=== PATIENT | male | born 1980 | race African-American/Black ===

== ENCOUNTER 2018-08-17 19:30 | Inpatient (IN) | payer OTHER ==
[~2018-08-17] VITALS: Ht 180.3 cm; Wt 99.2 kg
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
[2018-08-17 19:38] VITALS: BP 106/76
[2018-08-17 19:48] LABS: ABSOLUTE NEUTROPHILS 3.2 thou/uL (1.4-8.2); BASOPHILS 0.9 % (0.0-2.0); EOSINOPHILS 1.7 % (0.0-3.0); HEMATOCRIT 39.4 % (42.0-52.0); HEMOGLOBIN 13.3 gm/dL (14.0-18.0); LYMPHOCYTES 14.4 % (24.0-44.0); MCH 27.9 pg (26.0-34.0); MCHC 33.6 g/dL (28.0-37.0); MCV 82.9 fL (80.0-100.0); MONOCYTES 10.7 % (1.0-8.0); PLATELET COUNT 185 thou/uL (150-400); POLYS 72.3 % (36.0-66.0); RBC 4.75 mil/uL (4.50-6.00); RDW 16.5 % (10.5-14.5); WBC 4.4 thou/uL (4.0-11.0)
[2018-08-17 19:58] LABS: ANION GAP 5 mmol/L (7-16); BUN 15 mg/dL (7-18); CALCIUM 8.5 mg/dL (8.5-10.1); CHLORIDE 108 mmol/L (98-107); CO2 35 mmol/L (21-32); CREATININE 0.8 mg/dL (0.7-1.3); GLUCOSE 126 mg/dL (74-106); POTASSIUM 3.6 mmol/L (3.5-5.1); SODIUM 148 mmol/L (136-145)
[2018-08-17 20:08] LABS: ALBUMIN 2.8 g/dL (3.4-5.0); MAGNESIUM 1.7 mg/dL (1.8-2.4); SGOT 13 U/L (15-37); SGPT 23 U/L (30-65); TOTAL BILIRUBIN 0.1 mg/dL (<0.1-1.0); TOTAL PROTEIN 6.6 g/dL (6.4-8.2); TROPONIN-I <0.06 ng/mL (<0.06)
--- NOTE | 2018-08-17 20:26 | NUR ---
titrated to 8 from 6
--- NOTE | 2018-08-17 20:38 | NUR ---
CARDIZEM BUMPED TO 10 FROM 8
[2018-08-17 20:55] LABS: AMP/METHAMP Negative (Negative); BARBITURATES Negative (Negative); BENZODIAZEPINES Negative (Negative); COCAINE Negative (Negative); METHADONE Negative (Negative); OPIATES Negative (Negative); PCP Negative (Negative)
[2018-08-17 23:59] VITALS: BP 138/92
[2018-08-18 00:35] VITALS: BP 138/92
[2018-08-18] MEDS ORDERED: HALOPERIDOL 5 MG5 MG PO (01:00)
[2018-08-18] MEDS ORDERED: BENZTROPINE MES1 MG (01:03)
[2018-08-18] MEDS ORDERED: HYDROXYZINE HCL50 MG PO (01:06)
[2018-08-18 04:12] VITALS: BP 119/75
[2018-08-18 05:08] LABS: CALCIUM 8.2 mg/dL (8.5-10.1); CREATININE 0.7 mg/dL (0.7-1.3); MAGNESIUM 2.2 mg/dL (1.8-2.4); POTASSIUM 4.3 mmol/L (3.5-5.1)
--- NOTE | 2018-08-18 05:35 | NUR ---
PT WAS AN ER ADMIT AT ABOUT 0030 WITH AFIB RVR. PT IS ALERT AND ORIENTED BUT SLOW TO RESPOND. NO SIGN OF DISTRESS NOTED. PT CONVERTED TO NSR IN THE ER PRIOR TO COMING TO THE FLOOR. ADMISSION ASSESSMENT AND ADMISSION COMPLETED. CARDIZEM WAS STOPPED WITH HEART RATE IN NSR. NO SIGNS OF DISTRESS NOTED. NO FAMILY AT BEDSIDE. DENIES ANY FURTHER NEEDS AT THIS TIME.
[2018-08-18 09:05] VITALS: BP 151/103
[2018-08-18] MEDS ORDERED: PALIPERIDONE E1.5 MG (10:22)
[2018-08-18 12:10] VITALS: BP 141/91
--- NOTE | 2018-08-18 13:42 | EKG ---
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 : 1980 Requested By: Sherry Love Order Number: [id number] MD: Tacho Rabago Measurements Intervals [place] Rate: 143 P: [place]: QRS: 73 QRSD: 76 T: 32 QT: 289 QTc: 446 Interpretive Statements Atrial fibrillation Ventricular premature complex Anteroseptal infarct, old No previous ECG available for comparison Electronically Signed On 08-18-2018 13:42:18 CDT by Tacho Rabago [email or web address] ��������������������������������������������� <ELECTRONICALLY SIGNED> ���������������������������������������� By: Tacho Rabago MD, [facility] ��������������������������������������������� 08/18/18 1342 36 36 Tacho Rabago MD, FACC /EPI
--- NOTE | 2018-08-18 13:47 | EKG ---
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 : 1980 Requested By: Sherry Love Order Number: [id number] MD: Tacho Rabago Measurements Intervals [place] Rate: 90 P: 69 MT: 130 QRS: 75 QRSD: 80 T: 45 QT: 349 QTc: 427 Interpretive Statements Sinus rhythm Ventricular premature complex Anteroseptal infarct, old Early repolarization No previous ECG available for comparison Electronically Signed On 08-18-2018 13:47:34 CDT by Tacho Rabago [email or web address] ��������������������������������������������� <ELECTRONICALLY SIGNED> ���������������������������������������� By: Tacho Rabago MD, [facility] ��������������������������������������������� 08/18/18 1347 15 Tacho Rabago MD, [facility] /EPI
--- NOTE | 2018-08-18 13:53 | EKG ---
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 Practice Consultant: HOME : 1980 Requested By: Eb Parr Order Number: [id number] MD: Tacho Rabago Measurements Intervals [place] Rate: 86 P: 48 NM: 148 QRS: 69 QRSD: 78 T: 47 QT: 342 QTc: 409 Interpretive Statements Sinus rhythm Anteroseptal infarct, old No previous ECG available for comparison Electronically Signed On 08-18-2018 13:53:04 CDT by Tacho Rabago [email or web address] ��������������������������������������������� <ELECTRONICALLY SIGNED> ���������������������������������������� By: Tacho Rabago MD, [facility] ��������������������������������������������� 08/18/18 1353 1104 1104 Tacho Rabago MD, FACC /EPI
[2018-08-18 16:32] VITALS: BP 120/70
--- NOTE | 2018-08-18 17:00 | NUR ---
ASSUMED CARE OF PT AT 0700. PT ALERT ANSWERS ORIENTATION QUESTIONS CORRECTLY PT HAS HISTORY OF PSYCHIATRIC DISORDERS AND LIVES AT HOME WHERE HIS MOTHER CARES FOR HIM. PT HAD HIGH BLOOD PRESSURE THAT WAS CONTROLLED WITH BP MED. PT WAS SINUS RHYTHM ON TELEMETRY. PT WAS TACHYPNIC WITH WHEEZES AND RESPITORY TREATMENTS GIVEN. PT BREATHING EASIER IN AFTERNOON. WILL CONT WITH POC.
[2018-08-18 20:09] VITALS: BP 133/93
[2018-08-19 00:14] VITALS: BP 122/71
[2018-08-19 05:49] VITALS: BP 110/70
--- NOTE | 2018-08-19 07:34 | NUR ---
ASSUMED PT CARE AT 1900 WITH NO SIGN OF DISTRESS NOTED IN PT, PT IS ALERT AND ORIENTED. PT IS ON NASAL CANNULA, VITAL SIGNS STABLE AND PT IS STILL IN NSR. SCHEDULED MEDS ADMINISTERED TO PT. DENIES ANY FURTHER NEEDS AT THIS TIME. CONTINUE WITH NURSING POC
[2018-08-19 08:33] VITALS: BP 140/97
--- NOTE | 2018-08-19 10:13 | 2DMMODE ---
[facility] [address] [place] [address] 2 D/M-MODE ECHOCARDIOGRAM Name: UZAIR KRAUS Room #: 213-P [facility] IN .R.#: [id number] ������������� Admission: 08/17/18 ������������� Attend Phys: Binh Geiger, Discharge: ��� ������������� ��� Date of : 80 Date of Service: 08/19/18 1012 �� Report #: [id number] �������� ��������������������������������������������[id number] THIS REPORT FOR: //name// APPROVED REPORT Study performed: 08/19/2018 09:19:53 EXAM: Comprehensive 2D, Doppler, and color-flow Echocardiogram Patient Location: Bedside Room #: 213 Status: routine BSA: 2.19 HR: 69 bpm BP: 110/70 mmHg Rhythm: NSR Other Information Study Quality: Good Indications Arrhythmia Atrial Fibrillation 2D Dimensions RVDd: 40.67 mm IVSd: 11.12 (7-11mm) LVOT Diam: 23.57 (18-24mm) LVDd: 48.13 mm PWd: 10.91 (7-11mm) Ascending Ao: 28.70 (22-36mm) LVDs: 30.43 (25-40mm) Aortic Root: 31.06 mm IVC: 19.00 mm Volumes Left Atrial Volume (Systole) Single Plane 4CH: 43.18 mL Single Plane 2CH: 42.42 mL LA ESV Index: 22.00 mL/m2 Aortic Valve AoV Peak Hamilton.: 1.35 m/s AO Peak Gr.: 7.24 mmHg LVOT Max P.53 mmHg LVOT Max V: 1.06 m/s LISA Vmax: 3.45 cm2 Mitral Valve E/A Ratio: 1.3 MV Decel. Time: 260.46 ms [facility] [place] [address] [place] [address] 2 D/M-MODE ECHOCARDIOGRAM Name: UZAIR KRAUS Room #: [facility] IN [facility]#: [id number] ������������� Admission: 08/17/18 ������������� Attend Phys: Binh Geiger, Discharge: ��� ������������� ��� Date of : 80 Date of Service: 08/19/18 1012 �� Report #: [id number] �������� ��������������������������������������������[id number] MV E Max Hamilton.: 0.83 m/s MV A Hamilton.: 0.63 m/s MV PHT: 75.53 ms IVRT: 92.27 ms Pulmonary Valve PV Peak Hamilton.: 0.87 m/s PV Peak Gr.: 3.06 mmHg Pulmonary Vein P Vein S: 0.55 m/s P Vein A: 0.27 m/s P Vein D: 0.36 m/s P Vein A Dur.: 87.7 msec P Vein S/D Ratio: 1.53 Left Ventricle The left ventricle is normal size. There is normal LV segmental wall motion. There is normal left ventricular wall thickness. Left ventricular systolic function is normal. The left ventricular ejection fraction is within the normal range. LVEF is 60-65%. The left ventricular diastolic function is normal. Right Ventricle The right ventricle is normal size. The right ventricular systolic function is normal. Atria The left atrium size is normal. The right atrium size is normal. Aortic Valve The aortic valve is normal in structure. No aortic regurgitation is present. There is no aortic valvular stenosis. Mitral Valve The mitral valve is normal in structure. There is no mitral valve regurgitation noted. No evidence of mitral valve stenosis. Tricuspid Valve The tricuspid valve is normal in structure. There is no tricuspid valve regurgitation noted. Pulmonic Valve The pulmonary valve is normal in structure. There is no pulmonic valvular regurgitation. Great Vessels The aortic root is normal in size. IVC is normal in size and [address] [address] 2 D/M-MODE ECHOCARDIOGRAM Name: UZAIR KRAUS Room #: 213-P ADM IN M.R.#: [id number] ������������� Admission: 08/17/18 ������������� Attend Phys: Binh Geiger, Discharge: ��� ������������� ��� Date of : 80 Date of Service: 08/19/18 1012 �� Report #: [id number] �������� ��������������������������������������������[id number] collapses >50% with inspiration. Pericardium There is no pericardial effusion. <Conclusion> The left ventricle is normal size. LVEF is 60-65%. The aortic valve is normal in structure. The mitral valve is normal in structure. The tricuspid valve is normal in structure. The aortic root is normal in size. There is no pericardial effusion. ��������������������������������������������� <ELECTRONICALLY SIGNED> ���������������������������������������� By: Pravni Weinstein MD ��������������������������������������������� 08/19/18 1012 1012 1012 Pravin Weinstein MD /INF
[2018-08-19 12:42] VITALS: BP 148/101
[2018-08-19 16:00] VITALS: BP 152/106
[2018-08-19 19:28] VITALS: BP 137/93
--- NOTE | 2018-08-20 04:35 | NUR ---
PT AO X4. NO SIGN OF DISTRESS. DENIES PAIN. OXYGEN 2 L PER NC. RECEIVING NEB TREATMENTS WITH RT. REMAINS IN NSR WITH NR LESS THAN 100. RECEIVED AMLODOPINE F0R ELEVATED BP. OTHERWISE OTHER VITALS REMAIN STABLE. WILL CONTINUE TO FOLLOW POC
[2018-08-20 04:46] VITALS: BP 138/84
[2018-08-20 07:15] VITALS: BP 119/71
[2018-08-20 10:55] VITALS: BP 119/71
[2018-08-20 11:34] VITALS: BP 128/78
[2018-08-20] MEDS ORDERED: DILTIAZEM 24HR180 M1 PO (12:16)
[2018-08-20] MEDS ORDERED: PREDNISONE 10 M10 MG PO (12:16)
[2018-08-20] MEDS ORDERED: NORVASC5 MG PO (12:16)
[2018-08-20] MEDS ORDERED: VENTOLIN HFA 1818 GM INH (12:16)
[2018-08-20] MEDS ORDERED: CLARITIN10 MG PO (12:16)
[2018-08-20] MEDS ORDERED: MUCINEX600 MG PO (12:16)
[2018-08-20 12:30] VITALS: BP 128/78
--- NOTE | 2018-08-20 13:12 | NUR ---
ASSESSMENT DOCUMENTED. PT ALERT AND ORIENTED. VSS. DENIED HAVING PAIN OR DISCOMFORT. NO CARDIAC OR RESPITORY DISTRESS NOTED. SEEN BY DR. JEAN-BAPTISTE. ORDERS GIVEN TO DISCHARGE PT TO HOME. DISCHARGE INSTRUCTIONS GIVEN TO PT AND THE MOTHER. THEY VERBERLIZED UNDERSTANDING. PT LEFT THE FACILITY ACCOMPANIED BY THE MOTHER.
== END 2018-08-20 13:23 | disposition home or self-care (01) | DRG 309 ==
LOC: ER 19:30 → EROBS 23:19 → 2N 23:19 → ENTRNSPT 08-20 13:06 → EDTRNSPTSTS 08-20 13:10 → 2N 08-20 13:23
PROVIDERS: Nurse Practitioner Acute Care; Student in an Organized Health Care Education/Training Program; ADMIT Internal Medicine
DX: I47.1 Supraventricular tachycardia (principal); J45.901 Unspecified asthma with (acute) exacerbation; J44.1 Chronic obstructive pulmonary disease with (acute) exacerbation; E83.42 Hypomagnesemia; I48.0 Paroxysmal atrial fibrillation; F20.9 Schizophrenia, unspecified; F17.210 Nicotine dependence, cigarettes, uncomplicated; Z79.899 Other long term (current) drug therapy; Z88.0 Allergy status to penicillin; Z87.820 Personal history of traumatic brain injury
CPT/HCPCS: 10081